=== PATIENT | male | born 1955 | race Caucasian/White ===

== ENCOUNTER 2017-04-19 19:47 | Inpatient (IN) | payer OTHER ==
[~2017-04-19] VITALS: Ht 175.3 cm; Wt 123.0 kg
[2017-04-19 19:48] VITALS: BP 144/75; PULSE 87; RESP 16; TEMP 99; O2SAT 96
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
[2017-04-19] MEDS ORDERED: ASPI81CH CHEW (20:24)
[2017-04-19] MEDS ORDERED: GABA300C5 PO (20:24)
[2017-04-19] MEDS ORDERED: METO25TA3 PO (20:24)
[2017-04-19] MEDS ORDERED: VITA200013 (20:24)
[2017-04-19] MEDS ORDERED: ATOR10TA15 PO (20:24)
[2017-04-19] MEDS ORDERED: VANCOMYCIN INJ 1,000 MG in SODIUM CHLOR 0.9% 250 ML INJ 250 ML IV ONE (20:30)
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
[2017-04-19 20:49] LABS: AUTOMATED NEUTROPHIL # 22.7 TH/MM3 (1.8-7.7); BASOPHIL # 0.1 TH/MM3 (0-0.2); BASOPHIL % 0.3 % (0.0-2.0); EOSINOPHIL % 0.1 % (0.0-4.0); HEMATOCRIT 51.1 % (39.0-51.0); HEMOGLOBIN 17.4 GM/DL (13.0-17.0); MEAN CELL VOLUME 94.9 FL (80.0-100.0); MEAN CORPUSCULAR HEMOGLOBIN 32.4 PG (27.0-34.0); MEAN CORPUSCULAR HGB CONC 34.1 % (32.0-36.0); MONO % 6.1 % (0.0-8.0); MONOCYTE # 1.6 TH/MM3 (0-0.9); NEUT % 89.5 % (16.0-70.0); PLATELET COUNT 193 TH/MM3 (150-450); RED BLOOD COUNT 5.39 MIL/MM3 (4.50-5.90); RED CELL DISTRIBUTION WIDTH 13.4 % (11.6-17.2); WHITE BLOOD COUNT 25.4 TH/MM3 (4.0-11.0)
--- NOTE | 2017-04-19 21:09 | RADRPT ---
EXAM DATE/TIME: 04/19/2017 20:31 [facility] COMPARISON: No previous studies available for comparison. INDICATIONS : Right knee pain. Skin complaint. MEDICAL HISTORY : None. SURGICAL HISTORY : Total knee replacement, right. ENCOUNTER: Initial ACUITY: 1 day PAIN SCORE: 0/10 LOCATION: Right knee FINDINGS: Multiple views of the right knee were obtained and demonstrate the patient is status post arthroplast y. The femoral and tibial components are intact and in normal alignment. There is an old healed fract ure deformity of the proximal tibia with no acute fracture. There is diffuse soft tissue prominence. Postoperative changes are noted involving the patella. CONCLUSION: 1. Old fracture deformity of the proximal tibia. 2. Stat post arthroplasty. Arian Castillo MD on April 19, 2017 at 21:07 Board Certified Radiologist. This report was verified electronically.
[2017-04-19 21:18] LABS: BICARBONATE 21.8 MEQ/L (21.0-32.0); CREATININE 1.01 MG/DL (0.60-1.30); MAGNESIUM 2.2 MG/DL (1.5-2.5)
[2017-04-19] MEDS ORDERED: LACTULOSE SYRUP 20 GM/30 ML CUP PO PRN (22:00)
[2017-04-19] MEDS ORDERED: SENNOSIDES 8.6 MG TAB PO PRN (22:00)
[2017-04-19] MEDS: METOPROLOL TARTRATE 25 MG TAB PO SCH (22:00)
[2017-04-19] MEDS ORDERED: BISACODYL 10 MG SUPP RECTAL PRN (22:00)
[2017-04-19] MEDS ORDERED: NALOXONE HCL 0.4 MG/ML AMP IV PUSH PRN (22:00)
[2017-04-19] MEDS ORDERED: MAGNESIUM HYDROXIDE SUSP 30 ML CUP PO PRN (22:00)
[2017-04-19] MEDS ORDERED: SODIUM CHLORIDE 0.9% FLUSH 10 ML FLUSH IV FLUSH PRN (22:00)
[2017-04-19] MEDS ORDERED: HEPARIN SODIUM - SQ 10,000 UNITS/ML VIAL SQ SCH (22:00)
[2017-04-19] MEDS ORDERED: Vancomycin Consult Pharmacy 1 EA OTHER SCH (22:00)
[2017-04-19] MEDS ORDERED: ONDANSETRON HCL 4 MG/2 ML VIAL IVP PRN (22:00)
[2017-04-19] MEDS ORDERED: VANCOMYCIN INJ 700 MG in SODIUM CHLOR 0.9% 250 ML INJ 250 ML IV SCH (23:00)
[2017-04-19 23:01] VITALS: BP 141/66; PULSE 94; RESP 18; TEMP 98.2; O2SAT 95
--- NOTE | 2017-04-19 23:04 | RADRPT ---
EXAM DATE/TIME: 04/19/2017 22:41 [facility] COMPARISON: No previous studies available for comparison. INDICATIONS : Right leg pain. MEDICAL HISTORY : Myocardial infarction. Hypercholesterolemia. Hypertension. Chest pain. Sleep apnea. SURGICAL HISTORY : Coronary artery stent. Total knee replacement, left. Total knee replacement, right. ENCOUNTER: Initial ACUITY: 1 week PAIN SCORE: 5/10 LOCATION: Right leg. TECHNIQUE: Venous ultrasound of the leg was performed from the inguinal ligament to the proximal calf. Real-chastity e, color Doppler and spectral tracing, compression and augmentation techniques were used. FINDINGS: There is normal compressibility of the deep venous system from the inguinal region to the proximal ca lf. No echogenic clot is seen in the lumen of the common femoral, femoral, popliteal, and posterior tibial veins. There is a normal response of the venous system to proximal and distal augmentation an d respiration. CONCLUSION: No evidence of right lower extremity DVT Blayne Mann MD on April 19, 2017 at 23:00 Board Certified Radiologist. This report was verified electronically.
[2017-04-20] MEDS: PIPERACIL-TAZO 3.375 GM PREMIX 50 ML IV SCH ×5 (01:04→23:27)
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
[2017-04-20 03:17] VITALS: BP 113/59; PULSE 75; RESP 19; TEMP 98.9; O2SAT 96
[2017-04-20 08:11] VITALS: BP 112/67; PULSE 67; RESP 20; TEMP 98.6; O2SAT 93
[2017-04-20 08:23] LABS: AUTOMATED NEUTROPHIL # 16.1 TH/MM3 (1.8-7.7); BASOPHIL # 0.1 TH/MM3 (0-0.2); BASOPHIL % 0.4 % (0.0-2.0); EOSINOPHIL % 0.1 % (0.0-4.0); HEMATOCRIT 48.8 % (39.0-51.0); HEMOGLOBIN 16.7 GM/DL (13.0-17.0); LYMPH % 5.5 % (9.0-44.0); MEAN CELL VOLUME 95.8 FL (80.0-100.0); MEAN CORPUSCULAR HEMOGLOBIN 32.7 PG (27.0-34.0); MEAN CORPUSCULAR HGB CONC 34.1 % (32.0-36.0); MEAN PLATELET VOLUME 7.3 FL (7.0-11.0); MONO % 7.2 % (0.0-8.0); MONOCYTE # 1.3 TH/MM3 (0-0.9); NEUT % 86.8 % (16.0-70.0); PLATELET COUNT 163 TH/MM3 (150-450); RED CELL DISTRIBUTION WIDTH 13.6 % (11.6-17.2); WHITE BLOOD COUNT 18.5 TH/MM3 (4.0-11.0)
[2017-04-20 08:49] LABS: ALT (GPT) 24 U/L (12-78)
[2017-04-20 08:51] LABS: ALKALINE PHOSPHATASE 62 U/L (45-117); TOTAL BILIRUBIN ADULT 1.6 MG/DL (0.2-1.0); TOTAL PROTEIN 6.6 GM/DL (6.4-8.2)
[2017-04-20] MEDS: ASPIRIN 81 MG CHEW TAB CHEW SCH (09:00)
[2017-04-20] MEDS: METOPROLOL TARTRATE 25 MG TAB PO SCH ×2 (09:00→20:40)
[2017-04-20] MEDS: GABAPENTIN 300 MG CAP PO SCH ×3 (09:00→18:00)
[2017-04-20 09:01] LABS: ALBUMIN 3.2 GM/DL (3.4-5.0); AST (GOT) 14 U/L (15-37); BICARBONATE 21.9 MEQ/L (21.0-32.0); BLOOD UREA NITROGEN 24 MG/DL (7-18); CALCIUM 8.8 MG/DL (8.5-10.1); CHLORIDE 105 MEQ/L (98-107); CREATININE 1.09 MG/DL (0.60-1.30); GLOMERULAR FILTRATION RATE 68 ML/MIN (>89); GLUCOSE,RANDOM 141 MG/DL (74-106); SODIUM (NA) 135 MEQ/L (136-145)
--- NOTE | 2017-04-20 10:14 | HHI.PR ---
Subjective Remarks f/u; cellulitis right leg in no acute distress. denies pain. no fever. Objective Vitals Vital Signs Date Time Temp Pulse Resp B/P (MAP) Pulse Ox O2 Delivery O2 Flow Rate FiO2 04/20/17 08:11 98.6 67 20 112/67 (82) 93 04/20/17 03:17 98.9 75 19 113/59 (77) 96 04/19/17 23:01 98.2 94 18 141/66 (91) 95 04/19/17 22:30 04/19/17 20:04 16 04/19/17 19:48 99.0 87 16 144/75 (98) 96 Room Air Result Diagram: 04/20/17 0700 04/20/17 0700 Imaging Last Impressions Lower Extremity Ultrasound 04/19/17 0000 Signed Impressions: Service Date/Time: Wednesday, April 19, 2017 22:41 - CONCLUSION: No evidence of right lower extremity DVT Blayne Mann MD Knee X-Ray 04/19/17 0000 Signed Impressions: Service Date/Time: Wednesday, April 19, 2017 20:31 - CONCLUSION: 1. Old fracture deformity of the proximal tibia. 2. Stat post arthroplasty. Arian Castillo MD Objective Remarks GENERAL: This is a well-nourished, well-developed patient, in no apparent distress. CARDIOVASCULAR: Regular rate and regular rhythm without murmurs, gallops, or rubs. RESPIRATORY: Clear to auscultation. Breath sounds equal bilaterally. No wheezes , rales, or rhonchi. GASTROINTESTINAL: Abdomen soft, non-tender, nondistended. Normal, active bowel sounds MUSCULOSKELETAL:erythema over the right leg- open wound noted on the right leg. NEURO: Alert & Oriented x4 to person, place, time, situation. Moves all ext x4 Medications and IVs Current Medications Vancomycin HCl 1000 mg/Sodium Chloride 250 ml @ 250 mls/hr ONCE ONCE IV Last administered on 04/19/17t 20:30; Start 04/19/17 at 20:30; Stop 04/19/17 at 21 :29; Status DC Aspirin (Aspirin Chew) 81 mg DAILY CHEW ; Start 04/20/17 at 09:00 Atorvastatin Calcium (Lipitor) 10 mg HS PO ; Start 04/20/17 at 21:00 Gabapentin (Neurontin) 300 mg TID PO ; Start 04/20/17 at 09:00 Pharmacy Profile Note 0 ml @ 0 mls/hr UNSCH OTHER Last administered on 05:56; Start 04/19/17 at 22:00 Metoprolol Tartrate (Lopressor) 12.5 mg Q12HR PO ; Start 04/19/17 at 22:00 Sodium Chloride (NS Flush) 2 ml UNSCH PRN IV FLUSH FLUSH AFTER USING IV ACCESS ; Start 04/19/17 at 22:00 Sodium Chloride (NS Flush) 2 ml BID IV FLUSH ; Start 04/20/17 at 09:00 Ondansetron HCl (Zofran Inj) 4 mg Q6H PRN IVP NAUSEA OR VOMITING; Start at 22:00 Heparin Sodium (Porcine) (Heparin Inj) 5,000 units Q12H SQ Last administered on 04/19/17 23:47; Start 04/19/17 at 22:00; Status Future Hold Naloxone HCl (Narcan Inj) 0.4 mg UNSCH PRN IV PUSH SEE LABEL COMMENTS; Start 04/19/17 at 22:00 Magnesium Hydroxide (Milk Of Magnesia Liq) 30 ml Q12H PRN PO Mild constipation ; Start 04/19/17 at 22:00 Sennosides (Senokot) 17.2 mg Q12H PRN PO Moderate constipation; Start at 22:00 Bisacodyl (Dulcolax Supp) 10 mg DAILY PRN RECTAL SEVERE CONSITIPATION/ IF NPO; Start 04/19/17 at 22:00 Lactulose (Lactulose Liq) 30 ml DAILY PRN PO SEVERE CONSITIPATION/TAKING PO; Start 04/19/17 at 22:00 Vancomycin HCl 700 mg/Sodium Chloride 257 ml @ 250 mls/hr DAILY@2300 IV Last administered on 04/19/17 23:41; Start 04/19/17 at 23:00; Stop 04/20/17 at 03: 00; Status DC Piperacillin Sod/ Tazobactam Sod 50 ml @ 100 mls/hr Q6H IV Last administered on 04/20/17 05:41; Start 04/20/17 at 00:00 Vancomycin HCl 1750 mg/Sodium Chloride 517.5 ml @ 250 mls/hr Q12H IV ; Start 04/20/17 at 11:00 Miscellaneous Information SPECIFIC LAB TO BE DRAWN:VANCOMYCIN TROUGH DATE TO... ONCE ONCE .XX ; Start 04/21/17 at 10:45; Stop 04/21/17 at 10:46 A/P Assessment and Plan A/P Sepsis -Leukocytosis 25.4 at the presentation with tachycardia heart rate 94. Right lower extremity cellulitis with exposed bone. -Patient reports history of supposedly prediabetic state. A1c pending. -Blood cultures ordered and pending. Wound culture ordered and pending -on Vancomycin, Zosyn. -podiatry consulted -will consider ID evaluation if no improvement- Right lower extremity cellulitis -Suspected osteomyelitis -1 x 1 cm ulceration with Exposed bone on exam. -Wound culture ordered and pending. -Broad-spectrum antibiotics as well. -Consulted podiatry. History of coronary artery disease. -History of stenting -Continue beta maryanne, aspirin. Prophylaxis. he received heparin subcutaneous tonight. We'll hold due to suspected need for debridement in the morning. Lucie Gomez MD Apr 20, 2017 10:14
[2017-04-20] MEDS: SODIUM CHLORIDE 0.9% FLUSH 10 ML FLUSH IV FLUSH SCH ×2 (11:17→19:33)
[2017-04-20] MEDS: VANCOMYCIN INJ 1,750 MG in SODIUM CHLORID 0.9% 500 ML INJ 500 ML IV SCH ×2 (11:58→23:27)
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
[2017-04-20 12:44] VITALS: BP 134/70; PULSE 74; RESP 16; TEMP 98; O2SAT 95
[2017-04-20 15:46] LABS: HEMOGLOBIN A1C 5.9 % (4.3-6.0)
[2017-04-20 16:30] VITALS: BP 132/75; PULSE 74; RESP 16; TEMP 98; O2SAT 95
[2017-04-20 20:28] VITALS: BP 128/66; PULSE 75; RESP 16; TEMP 98.3; O2SAT 95
[2017-04-20] MEDS: ATORVASTATIN 10 MG TAB PO SCH (20:39)
[2017-04-20 23:15] VITALS: BP 124/69; PULSE 75; RESP 16; TEMP 98.4; O2SAT 97
[2017-04-21 03:28] VITALS: BP 119/65; PULSE 79; RESP 17; TEMP 98.5; O2SAT 97
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
[2017-04-21] MEDS: PIPERACIL-TAZO 3.375 GM PREMIX 50 ML IV SCH ×3 (06:17→18:00)
[2017-04-21 06:44] LABS: AUTOMATED NEUTROPHIL # 10.9 TH/MM3 (1.8-7.7); BASOPHIL # 0.1 TH/MM3 (0-0.2); BASOPHIL % 0.4 % (0.0-2.0); EOSINOPHIL % 0.1 % (0.0-4.0); HEMATOCRIT 44.4 % (39.0-51.0); HEMOGLOBIN 15.1 GM/DL (13.0-17.0); LYMPHOCYTE # 1.2 TH/MM3 (1.0-4.8); MEAN CELL VOLUME 95.7 FL (80.0-100.0); MEAN CORPUSCULAR HEMOGLOBIN 32.5 PG (27.0-34.0); MEAN PLATELET VOLUME 7.4 FL (7.0-11.0); MONO % 7.7 % (0.0-8.0); NEUT % 82.8 % (16.0-70.0); PLATELET COUNT 151 TH/MM3 (150-450); RED BLOOD COUNT 4.64 MIL/MM3 (4.50-5.90); RED CELL DISTRIBUTION WIDTH 13.3 % (11.6-17.2); WHITE BLOOD COUNT 13.1 TH/MM3 (4.0-11.0)
[2017-04-21 08:00] VITALS: BP 134/83; PULSE 68; RESP 17; TEMP 97.6; O2SAT 98
[2017-04-21] MEDS: ASPIRIN 81 MG CHEW TAB CHEW SCH (09:00)
[2017-04-21] MEDS: GABAPENTIN 300 MG CAP PO SCH ×3 (09:00→18:00)
[2017-04-21] MEDS: SODIUM CHLORIDE 0.9% FLUSH 10 ML FLUSH IV FLUSH SCH ×2 (09:00→22:18)
[2017-04-21] MEDS: METOPROLOL TARTRATE 25 MG TAB PO SCH ×2 (09:00→21:00)
[2017-04-21] MEDS ORDERED: PHARMACY ORDERED LAB ONE (10:45)
[2017-04-21 11:55] VITALS: BP 131/68; PULSE 86; RESP 20; TEMP 98; O2SAT 96
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
[2017-04-21] MEDS: VANCOMYCIN INJ 1,750 MG in SODIUM CHLORID 0.9% 500 ML INJ 500 ML IV SCH ×2 (13:06→22:18)
--- NOTE | 2017-04-21 13:54 | HHI.PR ---
Subjective Remarks in no distress. no fever. pain is controlled. no new complaints. Objective Vitals Vital Signs Date Time Temp Pulse Resp B/P (MAP) Pulse Ox O2 Delivery O2 Flow Rate FiO2 04/21/17 11:55 98.0 86 20 131/68 (89) 96 04/21/17 08:00 97.6 68 17 134/83 (100) 98 04/21/17 03:28 98.5 79 17 119/65 (83) 97 04/20/17 23:15 98.4 75 16 124/69 (87) 97 04/20/17 20:28 98.3 75 16 128/66 (86) 95 04/20/17 16:30 98.0 74 16 132/75 (94) 95 I/O 04/20/17 04/20/17 04/20/17 04/21/17 04/21/17 04/21/17 06:59 14:59 22:59 06:59 14:59 22:59 Intake Total 50 ml Balance 50 ml Intake IV Total 50 ml Result Diagram: 04/21/17 0557 04/20/17 0700 Imaging Last Impressions Lower Extremity Ultrasound 04/19/17 0000 Signed Impressions: Service Date/Time: Wednesday, April 19, 2017 22:41 - CONCLUSION: No evidence of right lower extremity DVT Blayne Mann MD Knee X-Ray 04/19/17 0000 Signed Impressions: Service Date/Time: Wednesday, April 19, 2017 20:31 - CONCLUSION: 1. Old fracture deformity of the proximal tibia. 2. Stat post arthroplasty. Arian Castillo MD Objective Remarks GENERAL: This is a well-nourished, well-developed patient, in no apparent distress. CARDIOVASCULAR: Regular rate and regular rhythm without murmurs, gallops, or rubs. RESPIRATORY: Clear to auscultation. Breath sounds equal bilaterally. No wheezes , rales, or rhonchi. GASTROINTESTINAL: Abdomen soft, non-tender, nondistended. Normal, active bowel sounds MUSCULOSKELETAL:erythema over the right leg- open wound noted on the right leg. NEURO: Alert & Oriented x4 to person, place, time, situation. Moves all ext x4 Medications and IVs Current Medications Vancomycin HCl 1000 mg/Sodium Chloride 250 ml @ 250 mls/hr ONCE ONCE IV Last administered on 04/19/17 20:30; Start 04/19/17 at 20:30; Stop 04/19/17 at 21 :29; Status DC Aspirin (Aspirin Chew) 81 mg DAILY CHEW ; Start 04/20/17 at 09:00 Atorvastatin Calcium (Lipitor) 10 mg HS PO ; Start 04/20/17 at 21:00 Gabapentin (Neurontin) 300 mg TID PO ; Start 04/20/17 at 09:00 Pharmacy Profile Note 0 ml @ 0 mls/hr UNSCH OTHER Last administered on 05:56; Start 04/19/17 at 22:00 Metoprolol Tartrate (Lopressor) 12.5 mg Q12HR PO ; Start 04/19/17 at 22:00 Sodium Chloride (NS Flush) 2 ml UNSCH PRN IV FLUSH FLUSH AFTER USING IV ACCESS ; Start 04/19/17 at 22:00 Sodium Chloride (NS Flush) 2 ml BID IV FLUSH Last administered on 04/20/17 11: 17; Start 04/20/17 at 09:00 Ondansetron HCl (Zofran Inj) 4 mg Q6H PRN IVP NAUSEA OR VOMITING; Start at 22:00 Heparin Sodium (Porcine) (Heparin Inj) 5,000 units Q12H SQ Last administered on 04/19/17 23:47; Start 04/19/17 at 22:00; Status Future Hold Naloxone HCl (Narcan Inj) 0.4 mg UNSCH PRN IV PUSH SEE LABEL COMMENTS; Start 04/19/17 at 22:00 Magnesium Hydroxide (Milk Of Magnesia Liq) 30 ml Q12H PRN PO Mild constipation ; Start 04/19/17 at 22:00 Sennosides (Senokot) 17.2 mg Q12H PRN PO Moderate constipation; Start at 22:00 Bisacodyl (Dulcolax Supp) 10 mg DAILY PRN RECTAL SEVERE CONSITIPATION; Start 04/19/17 at 22:00 Lactulose (Lactulose Liq) 30 ml DAILY PRN PO SEVERE CONSITIPATION/TAKING PO; Start 04/19/17 at 22:00 Vancomycin HCl 700 mg/Sodium Chloride 257 ml @ 250 mls/hr DAILY@2300 IV Last administered on 04/19/17 23:41; Start 04/19/17 at 23:00; Stop 04/20/17 at 03: 00; Status DC Piperacillin Sod/ Tazobactam Sod 50 ml @ 100 mls/hr Q6H IV Last administered on 04/21/17 12:10; Start 04/20/17 at 00:00 Vancomycin HCl 1750 mg/Sodium Chloride 517.5 ml @ 250 mls/hr Q12H IV Last administered on 04/21/17 13:06; Start 04/20/17 at 11:00 Miscellaneous Information SPECIFIC LAB TO BE DRAWN:VANCOMYCIN TROUGH DATE TO... ONCE ONCE .XX Last administered on 04/21/17 10:45; Start 04/21/17 at 10:45; Stop 04/21/17 at 10:46; Status DC A/P Assessment and Plan A/P Sepsis -Leukocytosis 25.4 at the presentation with tachycardia heart rate 94. Right lower extremity cellulitis with exposed bone. -Patient reports history of supposedly prediabetic state. A1c 5.9. -Blood cultures; one bottle with staph coag negative and wound culture with gram variable daina. -on Vancomycin, Zosyn. -podiatry and ID consults appreciated; will continue with IV antibiotics for now. Right lower extremity cellulitis -Suspected osteomyelitis -1 x 1 cm ulceration with Exposed bone on exam. -Wound culture as noted above. -Broad-spectrum antibiotics as well. -Consulted podiatry and ID as noted above. History of coronary artery disease. -History of stenting -Continue beta maryanne, aspirin. Prophylaxis. awaiting podiatry f/u and recommendations. consult PT. Lucie Gomez MD Apr 21, 2017 13:54
[2017-04-21] MEDS: ATORVASTATIN 10 MG TAB PO SCH (21:00)
[2017-04-21 23:46] VITALS: BP 119/65; PULSE 64; RESP 18; TEMP 98.3; O2SAT 96
[2017-04-22] MEDS: PIPERACIL-TAZO 3.375 GM PREMIX 50 ML IV SCH ×2 (00:29→05:40)
[2017-04-22 08:17] VITALS: BP 141/70; PULSE 59; RESP 20; TEMP 98.3; O2SAT 96
[2017-04-22] MEDS: METOPROLOL TARTRATE 25 MG TAB PO SCH (09:00)
[2017-04-22] MEDS: GABAPENTIN 300 MG CAP PO SCH (09:00)
[2017-04-22] MEDS: ASPIRIN 81 MG CHEW TAB CHEW SCH (09:00)
[2017-04-22] MEDS ORDERED: AUGM500T7 PO (11:42)
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
--- NOTE | 2017-04-22 11:42 | HHI.PR ---
Subjective Remarks in no acute distress. remains afebrile. no new complaints and wants to go home today. Objective Vitals Vital Signs Date Time Temp Pulse Resp B/P (MAP) Pulse Ox O2 Delivery O2 Flow Rate FiO2 04/22/17 08:17 98.3 59 20 141/70 (93) 96 04/21/17 23:46 98.3 64 18 119/65 (83) 96 04/21/17 11:55 98.0 86 20 131/68 (89) 96 I/O 04/21/17 04/21/17 04/21/17 04/22/17 04/22/17 04/22/17 07:00 15:00 23:00 07:00 15:00 23:00 Intake Total 50 ml 517.5 ml 520 ml Balance 50 ml 517.5 ml 520 ml Intake Oral 520 ml IV Total 50 ml 517.5 ml # Voids 5 Result Diagram: 04/21/17 0557 04/20/17 0700 Imaging Last Impressions Lower Extremity Ultrasound 04/19/17 0000 Signed Impressions: Service Date/Time: Wednesday, April 19, 2017 22:41 - CONCLUSION: No evidence of right lower extremity DVT Blayne Mann MD Knee X-Ray 04/19/17 0000 Signed Impressions: Service Date/Time: Wednesday, April 19, 2017 20:31 - CONCLUSION: 1. Old fracture deformity of the proximal tibia. 2. Stat post arthroplasty. Arian Castillo MD Objective Remarks GENERAL: This is a well-nourished, well-developed patient, in no apparent distress. CARDIOVASCULAR: Regular rate and regular rhythm without murmurs, gallops, or rubs. RESPIRATORY: Clear to auscultation. Breath sounds equal bilaterally. No wheezes , rales, or rhonchi. GASTROINTESTINAL: Abdomen soft, non-tender, nondistended. Normal, active bowel sounds MUSCULOSKELETAL:erythema over the right leg- open wound noted on the right leg. NEURO: Alert & Oriented x4 to person, place, time, situation. Moves all ext x4 Procedures none Medications and IVs Current Medications Vancomycin HCl 1000 mg/Sodium Chloride 250 ml @ 250 mls/hr ONCE ONCE IV Last administered on 04/19/17t 20:30; Start 04/19/17 at 20:30; Stop 04/19/17 at 21 :29; Status DC Aspirin (Aspirin Chew) 81 mg DAILY CHEW ; Start 04/20/17 at 09:00 Atorvastatin Calcium (Lipitor) 10 mg HS PO ; Start 04/20/17 at 21:00 Gabapentin (Neurontin) 300 mg TID PO ; Start 04/20/17 at 09:00 Pharmacy Profile Note 0 ml @ 0 mls/hr UNSCH OTHER Last administered on 05:56; Start 04/19/17 at 22:00; Stop 04/22/17 at 11:28; Status DC Metoprolol Tartrate (Lopressor) 12.5 mg Q12HR PO ; Start 04/19/17 at 22:00 Sodium Chloride (NS Flush) 2 ml UNSCH PRN IV FLUSH FLUSH AFTER USING IV ACCESS ; Start 04/19/17 at 22:00 Sodium Chloride (NS Flush) 2 ml BID IV FLUSH Last administered on 04/21/17 22: 18; Start 04/20/17 at 09:00 Ondansetron HCl (Zofran Inj) 4 mg Q6H PRN IVP NAUSEA OR VOMITING; Start at 22:00 Heparin Sodium (Porcine) (Heparin Inj) 5,000 units Q12H SQ Last administered on 04/19/17 23:47; Start 04/19/17 at 22:00; Status Future Hold Naloxone HCl (Narcan Inj) 0.4 mg UNSCH PRN IV PUSH SEE LABEL COMMENTS; Start 04/19/17 at 22:00 Magnesium Hydroxide (Milk Of Magnesia Liq) 30 ml Q12H PRN PO Mild constipation ; Start 04/19/17 at 22:00 Sennosides (Senokot) 17.2 mg Q12H PRN PO Moderate constipation; Start at 22:00 Bisacodyl (Dulcolax Supp) 10 mg DAILY PRN RECTAL SEVERE CONSITIPATION; Start 04/19/17 at 22:00 Lactulose (Lactulose Liq) 30 ml DAILY PRN PO SEVERE CONSITIPATION/TAKING PO; Start 04/19/17 at 22:00 Vancomycin HCl 700 mg/Sodium Chloride 257 ml @ 250 mls/hr DAILY@2300 IV Last administered on 04/19/17 23:41; Start 04/19/17 at 23:00; Stop 04/20/17 at 03: 00; Status DC Piperacillin Sod/ Tazobactam Sod 50 ml @ 100 mls/hr Q6H IV Last administered on 04/22/17 05:40; Start 04/20/17 at 00:00; Stop 04/22/17 at 11:28; Status DC Vancomycin HCl 1750 mg/Sodium Chloride 517.5 ml @ 250 mls/hr Q12H IV Last administered on 04/21/17 22:18; Start 04/20/17 at 11:00; Stop 04/22/17 at 11:28 ; Status DC Miscellaneous Information SPECIFIC LAB TO BE DRAWN:VANCOMYCIN TROUGH DATE TO... ONCE ONCE .XX Last administered on 04/21/17 10:45; Start 04/21/17 at 10:45; Stop 04/21/17 at 10:46; Status DC Amoxicillin/ Clavulanate Potassium (Augmentin) 500 mg Q8HR PO ; Start 04/22/17 at 14:00; Status UNV A/P Assessment and Plan A/P Sepsis -Leukocytosis 25.4 at the presentation with tachycardia heart rate 94. Right lower extremity cellulitis . -Patient reports history of supposedly prediabetic state. A1c 5.9. -Blood cultures; one bottle with staph coag negative and wound culture with gram variable daina. -on Vancomycin, Zosyn. - will switch to po Augmentin. -cleared by ID and podiatry for discharge. Right lower extremity cellulitis -Wound culture as noted above. -antibiotics as noted above. -Consulted podiatry and ID as noted above. History of coronary artery disease. -History of stenting -Continue beta maryanne, aspirin. Discharge Planning dc home with f/u with pcp and podiatry. see med list. d/w the patient. d/w and . Lucie Gomez MD Apr 22, 2017 11:42
--- NOTE | 2017-04-22 11:44 | HHI.DS ---
Discharge Summary Admission Date Apr 20, 2017 at 01:19 Discharge Date: Apr 22, 2017 Admitting Diagnosis severe right leg cellulitis, leukocytosis (1) Cellulitis ICD Code: L03.90 - Cellulitis, unspecified Status: Acute Procedures none Brief History - From Admission 61-year-old male with a history of hypertension, coronary artery disease, who presents with a 2 day history of worsening right lower extremity erythema. He reports an ulcer on his right ojeda which occurred about 10 days ago after injury. He said it was draining clear fluid, however became more inflamed over the Past couple days. He reports otherwise feeling okay. Denies any chest pain , shortness of breath, nausea, vomiting, lightheadedness, dizziness. Denies any history of exertional chest pain CBC/BMP: 04/21/17 0557 04/20/17 0700 Significant Findings Laboratory Tests Test 04/19/17 20:24 04/20/17 07:00 04/21/17 05:57 04/21/17 12:38 White Blood Count 25.4 TH/MM3 (4.0-11.0) 18.5 TH/MM3 (4.0-11.0) 13.1 TH/MM3 (4.0-11.0) Hemoglobin 17.4 GM/DL (13.0-17.0) Hematocrit 51.1 % (39.0-51.0) Neutrophils (%) (Auto) 89.5 % (16.0-70.0) 86.8 % (16.0-70.0) 82.8 % (16.0-70.0) Lymphocytes (%) (Auto) 4.0 % (9.0-44.0) 5.5 % (9.0-44.0) Neutrophils # (Auto) 22.7 TH/MM3 (1.8-7.7) 16.1 TH/MM3 (1.8-7.7) 10.9 TH/MM3 (1.8-7.7) Monocytes # (Auto) 1.6 TH/MM3 (0-0.9) 1.3 TH/MM3 (0-0.9) 1.0 TH/MM3 (0-0.9) Blood Urea Nitrogen 31 MG/DL (7-18) 24 MG/DL (7-18) Random Glucose 142 MG/DL (74-106) 141 MG/DL (74-106) Sodium Level 135 MEQ/L (136-145) 135 MEQ/L (136-145) Estimat Glomerular Filtration Rate 75 ML/MIN (>89) 68 ML/MIN (>89) Albumin 3.2 GM/DL (3.4-5.0) Aspartate Amino Transf (AST/SGOT) 14 U/L (15-37) Total Bilirubin 1.6 MG/DL (0.2-1.0) Vancomycin Level Trough 15.0 MCG/ML (5.0-10.0) Imaging Last Impressions Lower Extremity Ultrasound 04/19/17 0000 Signed Impressions: Service Date/Time: Wednesday, April 19, 2017 22:41 - CONCLUSION: No evidence of right lower extremity DVT Blayne Mann MD Knee X-Ray 04/19/17 0000 Signed Impressions: Service Date/Time: Wednesday, April 19, 2017 20:31 - CONCLUSION: 1. Old fracture deformity of the proximal tibia. 2. Stat post arthroplasty. Arian Castillo MD PE at Discharge GENERAL: This is a well-nourished, well-developed patient, in no apparent distress. CARDIOVASCULAR: Regular rate and regular rhythm without murmurs, gallops, or rubs. RESPIRATORY: Clear to auscultation. Breath sounds equal bilaterally. No wheezes , rales, or rhonchi. GASTROINTESTINAL: Abdomen soft, non-tender, nondistended. Normal, active bowel sounds MUSCULOSKELETAL:erythema over the right leg- open wound noted on the right leg. NEURO: Alert & Oriented x4 to person, place, time, situation. Moves all ext x4 Hospital Course Sepsis -Leukocytosis 25.4 at the presentation with tachycardia heart rate 94. Right lower extremity cellulitis . -Patient reports history of supposedly prediabetic state. A1c 5.9. -Blood cultures; one bottle with staph coag negative and wound culture with gram variable daina. -on Vancomycin, Zosyn. - will switch to po Augmentin. -cleared by ID and podiatry for discharge. Right lower extremity cellulitis -Wound culture as noted above. -antibiotics as noted above. -Consulted podiatry and ID as noted above. History of coronary artery disease. -History of stenting -Continue beta maryanne, aspirin. Pt Condition on Discharge: Stable Discharge Disposition: Discharge Home Discharge Time: <= 30 minutes Discharge Instructions DIET: Follow Instructions for: Heart Healthy Diet Activities you can perform: Regular-No Restrictions Follow up Referrals: PCP Follow-up Podiatry New Medications: Amoxicillin-Clavulanate (Augmentin) 500-125 mg Tab 500 MG PO Q8HR for infection for 5 Days, TAB 0 Refills Continued Medications: Aspirin (Aspirin) 81 Mg Chew 81 MG CHEW DAILY, TAB 0 Refills Atorvastatin (Atorvastatin) 10 Mg Tab 10 MG PO HS for Cholesterol Management, #30 TAB 0 Refills Cholecalciferol (Vitamin D) 2,000 Unit Cap Unknown Dose Gabapentin (Gabapentin) 300 Mg Cap 300 MG PO TID, #90 CAP 0 Refills Metoprolol Tartrate (Metoprolol Tartrate) 25 Mg Tab 25 MG PO DAILY, #30 TAB 0 Refills Lucie Gomez MD Apr 22, 2017 11:44
[2017-04-22] MEDS ORDERED: AMOXICILLIN/CLAVULANATE K 500 MG TAB PO SCH (14:00)
== END 2017-04-22 13:32 | disposition home or self-care (01) | DRG 872 ==
LOC: NEPE 19:47 → NEDA 21:51 → NEPHCDU 22:37 → OBSVTOIN 04-20 01:19
PROVIDERS: ADMIT Internal Medicine; ATTEND Internal Medicine
DX: A41.9 Sepsis, unspecified organism (principal); L97.819 Non-pressure chronic ulcer of other part of right lower leg with unspecified severity; I10 Essential (primary) hypertension; L03.115 Cellulitis of right lower limb; M86.9 Osteomyelitis, unspecified; G62.9 Polyneuropathy, unspecified; Z96.653 Presence of artificial knee joint, bilateral; E78.00 Pure hypercholesterolemia, unspecified; I25.2 Old myocardial infarction; G47.30 Sleep apnea, unspecified; I25.10 Atherosclerotic heart disease of native coronary artery without angina pectoris; Z95.5 Presence of coronary angioplasty implant and graft; E55.9 Vitamin D deficiency, unspecified; Z98.1 Arthrodesis status; R00.0 Tachycardia, unspecified
CPT/HCPCS: 73564; 80048; 80053; 80202; 83036; 83605; 83735; 85025; 86403; 87040; 87070; 87077; 87186; 87205; 93971; J1644; J2543; J3370; J7040; J7050